=== PATIENT | male | born 1990 | race Hispanic/Latino ===

== ENCOUNTER 2017-03-30 09:28 | Emergency (ER) | payer SELFPAY ==
--- NOTE | 2017-03-30 10:37 | RAD ---
RIGHT WRIST 3 VIEWS: HISTORY: Right wrist pain. Injury. FINDINGS: Scaphoid waist is intact. No acute fracture or dislocation. IMPRESSION: No acute osseous abnormalities are demonstrated. POS: [facility]
--- NOTE | 2017-03-30 10:38 | RAD ---
RIGHT HAND 3 VIEWS: HISTORY: Right hand injury. FINDINGS: Joint spaces are preserved. No acute fracture or dislocation. IMPRESSION: No acute osseous abnormalities are demonstrated. POS: [facility]
--- NOTE | 2017-03-30 10:40 | RAD ---
TWO VIEWS OF THE RIGHT FOREARM: INDICATION: History of fall with right arm pain. FINDINGS: There is a healed deformity involving the distal radius. No acute fracture or subluxation is evident . IMPRESSION: No acute osseous abnormality. POS: [facility]
[2017-03-30] MEDS ORDERED: HYDROcodone/Acetaminophen 5/325 mg Tablet ONE (10:49)
--- NOTE | 2017-03-30 11:35 | RAD ---
THORACIC SPINE 2 VIEWS: HISTORY: Back injury. FINDINGS: There are 12 thoracic-type vertebrae. Pedicles are intact. Vertebral body height and alignment are maintained. No acute fracture or dislocation. IMPRESSION: No acute osseous abnormalities are demonstrated. POS: [facility]
--- NOTE | 2017-03-30 11:36 | RAD ---
LEFT SHOULDER 3 VIEWS: HISTORY: Left shoulder injury. FINDINGS: Acromioclavicular and glenohumeral alignment are maintained. No acute fracture or dislocation. IMPRESSION: No acute osseous abnormalities are demonstrated. POS: [facility]
--- NOTE | 2017-03-30 11:37 | RAD ---
RIGHT ELBOW 4 VIEWS: History Right elbow injury. FINDINGS: Radiocapitellar alignment is maintained. No acute fracture, dislocation, or fluid distention of the joint capsule. IMPRESSION: No acute osseous abnormalities are demonstrated. POS: [facility]
== END 2017-03-30 13:52 | disposition home or self-care (01) ==
LOC: ERS 09:28
DX: M25.531 Pain in right wrist (principal); I10 Essential (primary) hypertension; W19.XXXA Unspecified fall, initial encounter
CPT/HCPCS: 29125; 36415; 72072; 82550; 96360